=== PATIENT | male | born 1990 ===

== ENCOUNTER → 2018-02-17 | Outpatient (CLI) | payer OTHER | END | disposition home or self-care (01) | LOC: LAB 08:00 → RAD 03-19 08:38 → LAB 03-19 08:38 | DX: L91.0 Hypertrophic scar (principal) ==

== ENCOUNTER → 2018-03-19 08:52 | Outpatient (CLI) | payer OTHER | END | disposition home or self-care (01) | LOC: RAD 08:52 | DX: L91.0 Hypertrophic scar (principal) ==

== ENCOUNTER 2018-03-20 05:46 | Day surgery (SDC) | payer OTHER | END 2018-03-20 11:25 | disposition home or self-care (01) | LOC: CIR.AMB 05:46 | DX: L90.5 Scar conditions and fibrosis of skin (principal) ==